=== PATIENT | female | born 1965 | race Native Hawaiian/Other Pacific Islander ===

== ENCOUNTER 2017-03-09 21:34 | Emergency (ER) | payer OTHER ==
[~2017-03-09] VITALS: Ht 157.5 cm; Wt 77.1 kg
[2017-03-09] MEDS ORDERED: AMITRIPTYLIN75 MG PO (22:03)
[2017-03-09] MEDS ORDERED: SERT100T PO (22:04)
== END 2017-03-09 23:41 | disposition home or self-care (01) ==
LOC: ED 21:34
DX: S46.811A Strain of other muscles, fascia and tendons at shoulder and upper arm level, right arm, initial encounter (principal); X50.9XXA Other and unspecified overexertion or strenuous movements or postures, initial encounter; Y92.098 Other place in other non-institutional residence as the place of occurrence of the external cause
CPT/HCPCS: 96372; 99283; J1885

== ENCOUNTER 2017-06-25 07:40 | Emergency (ER) | payer OTHER ==
[~2017-06-25] VITALS: Ht 162.6 cm; Wt 77.1 kg
[~2017-06-25 07:40] MED LIST: AMITRIPTYLIN75 MG PO; SERT100T PO
[2017-06-25 07:45] VITALS: TEMP 97.5
[2017-06-25 10:05] LABS: PLATELET COUNT 287 K/uL (152-353)
[2017-06-25 10:14] LABS: POTASSIUM 4.4 mmol/L (3.6-5.2)
[2017-06-25 12:20] VITALS: BP 139/68
== END 2017-06-25 12:55 | disposition short-term general hospital (02) ==
LOC: ED 07:40
PROVIDERS: Family Medicine
DX: R00.1 Bradycardia, unspecified (principal)
CPT/HCPCS: 36415; 80053; 83735; 84443; 84484; 85027; 93005; 96374; 99284; J1885

== ENCOUNTER 2018-08-20 12:30 | Emergency (ER) | payer OTHER ==
[~2018-08-20] VITALS: Ht 160 cm; Wt 81.6 kg
[~2018-08-20 12:30] MED LIST changes: +ALLERCLEAR10 MG PO; +AMOXICILLIN250 M2 PO; +CELEXA20 MG PO; +SERT50TA PO
[2018-08-20 12:46] VITALS: TEMP 97.9
[2018-08-20 14:57] LABS: PLATELET COUNT 300 K/uL (152-353)
[2018-08-20 15:14] LABS: POTASSIUM 4.2 mmol/L (3.6-5.2)
[2018-08-20 16:30] VITALS: BP 116/51
== END 2018-08-20 16:39 | disposition home or self-care (01) ==
LOC: ED 12:30
PROVIDERS: Hospitalist
DX: N20.0 Calculus of kidney (principal)
CPT/HCPCS: 36415; 80053; 81000; 82150; 83690; 85027; 96360; 96375; 99284; J1170; J1885; J2405

== ENCOUNTER 2019-03-20 12:25 | Emergency (ER) | payer OTHER ==
[~2019-03-20] VITALS: Ht 160 cm; Wt 79.4 kg
[2019-03-20 13:58] LABS: PLATELET COUNT 304 K/uL (152-353)
[2019-03-20 14:05] LABS: POTASSIUM 4.2 mmol/L (3.6-5.2)
[2019-03-20 15:29] VITALS: BP 158/74; TEMP 97.5
== END 2019-03-20 15:32 | disposition home or self-care (01) ==
LOC: ED 12:25
PROVIDERS: Emergency Medicine
DX: N23 Unspecified renal colic (principal); N39.0 Urinary tract infection, site not specified
CPT/HCPCS: 36415; 80053; 81000; 85027; 87077; 87086; 87088; 87186; 96360; 96365; 96374; 96375; 99284; J1885

== ENCOUNTER 2019-06-02 10:43 | Outpatient (CLI) | payer OTHER ==
[2019-06-02 11:30] LABS: PLATELET COUNT 288 K/uL (152-353)
== END 2019-06-02 22:55 | disposition home or self-care (01) ==
LOC: LABW 10:43 → LAB 10:43
PROVIDERS: Internal Medicine
DX: N10 Acute pyelonephritis (principal); R53.83 Other fatigue
CPT/HCPCS: 36415; 80053; 81000; 82550; 82607; 82728; 82746; 83540; 83550; 83735; 84100; 84439; 84443; 85027; Q9963

== ENCOUNTER 2019-11-01 15:07 | Outpatient (CLI) | payer OTHER | END 2019-11-01 19:13 | disposition home or self-care (01) | LOC: RAD 15:07 | DX: M54.5 Low back pain (principal) ==

== ENCOUNTER 2019-11-15 13:19 | Outpatient (CLI) | payer OTHER ==
[2019-11-15 13:37] LABS: PLATELET COUNT 286 K/uL (152-353)
[2019-11-15 13:47] LABS: POTASSIUM 4.1 mmol/L (3.6-5.2)
== END 2019-11-15 23:47 | disposition home or self-care (01) ==
LOC: LABW 13:19
PROVIDERS: Internal Medicine
DX: N10 Acute pyelonephritis (principal); R31.21 Asymptomatic microscopic hematuria; E53.8 Deficiency of other specified B group vitamins; B35.1 Tinea unguium
CPT/HCPCS: 36415; 80053; 81000; 82607; 85027; 87086; 87088

== ENCOUNTER 2020-02-15 13:43 | Outpatient (CLI) | payer OTHER ==
[2020-02-15 14:36] LABS: PLATELET COUNT 285 K/uL (152-353)
[2020-02-15 14:38] LABS: POTASSIUM 4.2 mmol/L (3.6-5.2)
== END 2020-02-15 22:13 | disposition home or self-care (01) ==
LOC: LABW 13:43
PROVIDERS: ATTEND Obstetrics & Gynecology Gynecologic Oncology
DX: D07.1 Carcinoma in situ of vulva (principal)
CPT/HCPCS: 36415; 80048; 85027; 93005

== ENCOUNTER 2021-03-01 13:24 | Outpatient (CLI) | payer OTHER | END 2021-03-01 19:14 | disposition home or self-care (01) | LOC: RAD 13:24 | PROVIDERS: ATTEND Specialist | DX: R42 Dizziness and giddiness (principal) ==

== ENCOUNTER 2021-05-26 09:50 | Emergency (ER) | payer OTHER ==
[~2021-05-26] VITALS: Ht 160 cm; Wt 79.4 kg
[2021-05-26 10:50] VITALS: BP 118/51; TEMP 97.8
== END 2021-05-26 10:53 | disposition home or self-care (01) ==
LOC: ED 09:50
DX: N39.0 Urinary tract infection, site not specified (principal)
CPT/HCPCS: 81000; 87077; 87086; 87088; 87186; 99283

== ENCOUNTER 2021-11-08 12:07 | Emergency (ER) | payer OTHER ==
[~2021-11-08] VITALS: Ht 157.5 cm; Wt 67.1 kg
[2021-11-08 13:26] VITALS: BP 136/77; TEMP 98
== END 2021-11-08 13:26 | disposition home or self-care (01) ==
LOC: ED 12:07
DX: M79.645 Pain in left finger(s) (principal); F41.8 Other specified anxiety disorders; L98.8 Other specified disorders of the skin and subcutaneous tissue
CPT/HCPCS: 99281

== ENCOUNTER 2021-12-17 06:02 | Emergency (ER) | payer OTHER ==
[~2021-12-17] VITALS: Ht 157.5 cm; Wt 67.1 kg
[2021-12-17 06:44] VITALS: BP 140/62; TEMP 98
== END 2021-12-17 06:44 | disposition home or self-care (01) ==
LOC: ED 06:02
DX: L98.8 Other specified disorders of the skin and subcutaneous tissue (principal)
CPT/HCPCS: 99281

== ENCOUNTER 2023-03-26 09:07 | Outpatient (CLI) | payer OTHER ==
[2023-03-26 09:55] LABS: POTASSIUM 4.2 mmol/L (3.6-5.2)
[2023-03-26 10:01] LABS: PLATELET COUNT 298 K/uL (152-353)
== END 2023-03-26 19:02 | disposition home or self-care (01) ==
LOC: LABW 09:07
PROVIDERS: ATTEND Plastic Surgery Plastic Surgery Within the Head and Neck
DX: Z01.812 Encounter for preprocedural laboratory examination (principal); Z01.818 Encounter for other preprocedural examination; Z01.811 Encounter for preprocedural respiratory examination; Z01.810 Encounter for preprocedural cardiovascular examination
CPT/HCPCS: 36415; 80048; 85027; 93005